=== PATIENT | female | born 1985 | race Two or more races ===

== ENCOUNTER 2018-01-06 10:46 | Emergency (ER) | payer SELFPAY ==
[~2018-01-06] VITALS: Ht 160 cm; Wt 81.6 kg
[2018-01-06 11:22] VITALS: BP 121/80
[2018-01-06] MEDS ORDERED: KETOROLAC TROMETH 60MG/2ML VIAL IM ONE (12:00)
== END 2018-01-06 12:37 | disposition home or self-care (01) ==
LOC: ER 10:46
DX: M54.41 Lumbago with sciatica, right side (principal); G89.29 Other chronic pain; E11.9 Type 2 diabetes mellitus without complications
CPT/HCPCS: 96372; 99283; J1885